=== PATIENT | male | born 1960 | race Caucasian/White ===

== ENCOUNTER 2022-08-08 01:45 | Day surgery (SDC) | payer OTHER, SELFPAY ==
[2022-07-28 11:46] VITALS: BMI 43.7
--- NOTE | 2022-08-07 10:24 | WPDANESEPPF ---
Anes - Initial Pre Proc Eval Procedure: Operation Date: 08/08/22 14:30 Proposed Procedures p Colonoscopy - Brandan Hoang MD Date/Time: 08/07/22 10:24 Surgeon: Brandan Hoang MD Pre Op Diagnosis: diarrhea Patient Data Age: 62 Gender: M Height: 1.68 m Weight: 122.8 kg Allergies Allergy/AdvReac Type Severity Reaction Status Date / Time No Known Allergies Allergy Mild Verified 07/28/22 11:46 Home Medications Medication Instructions Recorded Confirmed Type atorvastatin 20 mg tablet 20 mg PO DAILY 07/13/22 07/28/22 History lisinopril 5 mg tablet 5 mg PO DAILY 07/13/22 07/28/22 History metformin 500 mg tablet 500 mg PO DAILY 07/13/22 07/28/22 History metoprolol tartrate 25 mg tablet 25 mg PO BID 07/13/22 07/28/22 History nmjfuwoalck-qzpvwoilsfo-uhhsto 500 1 tablet PO DAILY 07/28/22 07/28/22 History mg-400 mg-80 mg tablet Results Review: All pre-operative results and documents have been reviewed as part of the pre-operative evaluation. [facility] Past Medical History Medical History (Updated 08/07/22 @ 10:25 by Matt Mckeon MD) Colon cancer screening Diabetes type 2, controlled Hyperlipidemia Hypertension Morbid obesity with BMI of 40.0-44.9, adult Obesity Social History Social History Smoking status: Never smoker Substance use type: does not use Living arrangements: with family Spiritual care concerns: No Anes - Eval Final PreProcedure Day of Procedure 08/07/22 10:24 Patient weight: morbidly obese Heart: regular rate and rhythm Lungs: clear to auscultation and normal air movement Airway: Mallampati scale class II Neurological: alert and oriented Last oral intake: >/= 8 hours ASA classification: III Emergent: no Anesthetic plan: proceed Anesthesia type and monitoring: general GIVS Results Review: All pre-operative results and documents have been reviewed as part of the pre-operative evaluation. Informed Consent: The patient's anesthetic plan and its attendant risks and benefits were discussed with the patient/family/POA. Questions were solicited and answers provided to the satisfaction of the patient/family/POA.
[2022-08-08 13:12] VITALS: BP 135/75; PULSE 70; RESP 18; TEMP 36.1; O2SAT 100
--- NOTE | 2022-08-08 13:20 | WPDANESEPPF ---
Anes - Initial Pre Proc Eval Procedure: Operation Date: 08/08/22 14:30 Proposed Procedures p Colonoscopy - Brandan Hoang MD Date/Time: 08/08/22 13:20 Surgeon: Brandan Hoang MD Pre Op Diagnosis: diarrhea Patient Data Age: 62 Gender: M Height: 1.68 m Weight: 119 kg Last Vital Signs Temp 36.1 C L 08/08/22 13:12 Pulse 70 08/08/22 13:12 Resp 18 08/08/22 13:12 BP 135/75 08/08/22 13:12 Pulse Ox 100 08/08/22 13:12 O2 Del Method Room Air 08/08/22 13:12 Allergies Allergy/AdvReac Type Severity Reaction Status Date / Time No Known Allergies Allergy Mild Verified 08/08/22 13:10 Home Medications Medication Instructions Recorded Confirmed Type atorvastatin 20 mg tablet 20 mg PO DAILY 07/13/22 07/28/22 History lisinopril 5 mg tablet 5 mg PO DAILY 07/13/22 07/28/22 History metformin 500 mg tablet 500 mg PO DAILY 07/13/22 07/28/22 History metoprolol tartrate 25 mg tablet 25 mg PO BID 07/13/22 07/28/22 History zbasvyuogjr-jigpoxfddgt-foeycf 500 1 tablet PO DAILY 07/28/22 07/28/22 History mg-400 mg-80 mg tablet Patient hx anesthesia problems: none Family hx anesthesia problems: none Results Review: All pre-operative results and documents have been reviewed as part of the pre-operative evaluation. [facility] Past Medical History Medical History Colon cancer screening Diabetes type 2, controlled Hyperlipidemia Hypertension Morbid obesity with BMI of 40.0-44.9, adult Obesity ALLYN (obstructive sleep apnea) Social History Social History Smoking status: Never smoker Substance use type: does not use Living arrangements: with family Spiritual care concerns: No Anes - Eval Final PreProcedure Day of Procedure 08/08/22 13:20 Patient weight: morbidly obese Heart: regular rate and rhythm Lungs: clear to auscultation Airway: Mallampati scale class III and special considerations poor dentition Neurological: alert and oriented Last oral intake: >/= 8 hours ASA classification: III Emergent: no Anesthetic plan: proceed Anesthesia type and monitoring: general GIVS and standard monitoring Results Review: All pre-operative results and documents have been reviewed as part of the pre-operative evaluation. Informed Consent: The patient's anesthetic plan and its attendant risks and benefits were discussed with the patient/family/POA. Questions were solicited and answers provided to the satisfaction of the patient/family/POA.
[2022-08-08] MEDS: LACTATED RINGERS 1,000 ML 150 ML IV CONT (13:32)
[2022-08-08 13:34] LABS: Glucose Point of Care 146 mg/dl (65-105)
--- NOTE | 2022-08-08 13:56 | PM.HPGS ---
History of Present Illness History of Present Illness Consent: Risks, benefits, and alternatives have been discussed and questions answered. Patient agrees to proceed with procedure. Chief complaint: diarrhea Narrative: Dereck Alexander is a 62 year old male Referred for change in bowel habits. Lately if he has any sort of spicy food he will have diarrhea and cramping. He denies seeing blood in his stoo Review of Systems Review of Systems: All systems reviewed & are unremarkable except as noted in HPI and below PMFSH Past Medical History Medical History Colon cancer screening Diabetes type 2, controlled Hyperlipidemia Hypertension Morbid obesity with BMI of 40.0-44.9, adult Obesity ALLYN (obstructive sleep apnea) Social History Social History Smoking status: Never smoker Substance use type: does not use Living arrangements: with family Spiritual care concerns: No Meds Home Medications and Allergies Home Medications Medication Instructions Recorded Confirmed Type atorvastatin 20 mg tablet 20 mg PO DAILY 07/13/22 08/08/22 History lisinopril 5 mg tablet 5 mg PO DAILY 07/13/22 08/08/22 History metformin 500 mg tablet 500 mg PO DAILY 07/13/22 08/08/22 History metoprolol tartrate 25 mg tablet 25 mg PO BID 07/13/22 08/08/22 History pcizeckbjdj-ymffmxzyhnc-hhhndf 500 1 tablet PO DAILY 07/28/22 08/08/22 History mg-400 mg-80 mg tablet Allergies Allergy/AdvReac Type Severity Reaction Status Date / Time No Known Allergies Allergy Mild Verified 08/08/22 13:10 Vital Signs Vital Signs - 24 hr 08/08/22 13:12 Temperature 36.1 C L Pulse Rate 70 Respiratory Rate 18 Blood Pressure 135/75 Pulse Oximetry 100 Oxygen Delivery Room Air Exam Const: General: alert Orientation/consciousness: patient oriented x3 Resp: Auscultation: clear to auscultation bilaterally Cardio: Rhythm: regular rhythm GI: GI Palp: Yes Soft to palpation and No Tenderness to palpation present (GI) Neuro: General: patient oriented x3 Assessment and Plan Assessment and plan (1) Colon cancer screening: Code(s): Z12.11 - Encounter for screening for malignant neoplasm of colon Status: Acute (2) Change in bowel habits: Code(s): R19.4 - Change in bowel habit Status: Acute Assessment and Plan: Colonoscopy with possible biopsy or polypectomy or cautery or injection of substances.
[2022-08-08 14:29] VITALS: BP 110/59; PULSE 78; RESP 18; O2SAT 96
[2022-08-08 14:39] VITALS: BP 98/59; PULSE 74; RESP 18; O2SAT 97
[2022-08-08 14:49] VITALS: BP 102/57; PULSE 91; RESP 18; O2SAT 97
== END 2022-08-08 14:55 | disposition home or self-care (01) ==
PROVIDERS: PCP Family Medicine; Visit Provider Internal Medicine Gastroenterology
PROC: 0DJD8ZZ Inspection of Lower Intestinal Tract, Via Natural or Artificial Opening Endoscopic (ICD-10-PCS; CPT 45378; principal; 2022-08-08 14:30)
DX: Z12.11 Encounter for screening for malignant neoplasm of colon (principal); R19.7 Diarrhea, unspecified; K57.30 Diverticulosis of large intestine without perforation or abscess without bleeding; E11.9 Type 2 diabetes mellitus without complications; E78.5 Hyperlipidemia, unspecified; I10 Essential (primary) hypertension; G47.33 Obstructive sleep apnea (adult) (pediatric); E66.01 Morbid (severe) obesity due to excess calories; Z68.41 Body mass index [BMI] 40.0-44.9, adult; Z79.84 Long term (current) use of oral hypoglycemic drugs
CPT/HCPCS: 45378; 82948; J2001; J2704; J7120

== ENCOUNTER 2022-09-13 06:21 | Emergency (ER) | payer OTHER, SELFPAY ==
--- NOTE | ~2022-09-13 | CT_ITS ---
CT Abdomen and Pelvis with contrast. History: Abdominal pain. Spiral CT of the abdomen and pelvis was performed after the administration of intravenous contrast. 1 00 cc of Omnipaque 350 was administered intravenously without complication. Dose reduction technique was used on this scan by utilizing automated exposure control and iterative reconstruction technique. The dose-length product (DLP) was 1436.12 mGy-cm. Findings: Scans through the lung bases demonstrate mild atelectatic change. The liver, spleen, pancreas, gallbladder, adrenals and right kidney are within normal limits. Punctat e nonobstructing left lower pole renal stone noted. No evidence of aortic aneurysm. No lymphadenopat hy is seen. There is no evidence of bowel obstruction. There is no evidence to suggest acute appendicitis or dive rticulitis. Images through the pelvis were performed. Urinary bladder unremarkable. Prostate gland and seminal ve sicles are unremarkable. No ascites is seen. Impression: No acute abnormality. Punctate nonobstructing left renal stone. Reviewed, dictated and finalized at [facility]. ORATE COORDINATOR Impression: No acute abnormality. Punctate nonobstructing left renal stone.
[2022-09-13 06:26] VITALS: BP 145/64; PULSE 66; RESP 17; TEMP 36.3; O2SAT 98
[2022-09-13 06:33] VITALS: PULSE 65; RESP 12; O2SAT 97
[2022-09-13 07:01] LABS: Basophils Absolute Auto 0.1 K/mm3 (0.0-0.1); Eosinophils Absolute Auto 0.2 K/mm3 (0-0.3); Eosinophils Percent Auto 4.1 % (0-4.4); Hematocrit 40.9 % (42.0-52.0); Hemoglobin 14.1 g/dL (14.0-18.0); Immature Granulocyte Absolute 0.02 K/mm3 (0.00-0.031); Immature Granulocyte Percent A 0.3 % (0-0.5); Lymphocytes Absolute Auto 1.73 K/mm3 (0.9-3.2); Lymphocytes Percent Auto 29.9 % (18.3-44.2); Mean Corpuscular HGB Conc 34.5 g/dl (32-36); Mean Corpuscular Hemoglobin 31.3 pg (26-34); Mean Corpuscular Volume 90.9 fl (80-100); Mean Platelet Volume 10.5 fl (7.4-10.4); Monocytes Absolute Auto 0.6 K/mm3 (0.1-0.6); Monocytes Percent Auto 9.7 % (2.6-8.5); Neutrophils Absolute Auto 3.2 K/mm3 (1.3-6.7); Platelet Count Result 148 k/mm3 (150-375); Red Cell Distribution Width 12.2 % (11.5-14.5); White Blood Count 5.8 K/mm3 (4.5-10.0)
[2022-09-13 07:02] LABS: Appearance Urine Clear (Clear); Bilirubin Urine Negative (Negative); Blood Urine Negative (Negative); Color Urine Yellow (Yellow); Glucose Urine UA Negative (Negative); Ketones Urine Negative (Negative); Leukocyte Esterase Ur Negative LEU/UL (Negative); Nitrate Urine Negative (Negative); Protein Urine Negative (Negative); Specific Grav Ur 1.025 (1.001-1.035); Urobilinogen Urine 0.2 mg/dL (<2.0); pH Urine 5.5 (5.0-9.0)
[2022-09-13 07:15] LABS: Alanine Aminotransferase 59 U/L (6-50); Albumin Level 4.3 g/dL (3.5-5.1); Alkaline Phosphatase 47 U/L (38-126); Anion Gap 5 mmol/L (8-16); Aspartate Amino Transferase 43 U/L (17-59); Bilirubin,Total 0.6 mg/dL (0.2-1.3); Blood Urea Nitrogen 21 mg/dL (9-20); Calcium 8.4 mg/dL (8.4-10.2); Carbon Dioxide 28 mmol/L (22-30); Chloride 96 mmol/L (98-107); Estimated CRCL calculation 93 ml/min; Estimated Glomerular Filt Rate > 60; Glucose 142 mg/dL (65-110); Lipase 105 U/L (23-300); Potassium 3.4 mmol/L (3.4-5.0); Sodium 129 mmol/L (137-145)
[2022-09-13 07:18] LABS: Mucus Urine Rare /lpf; RBC Urine 0-2 /hpf (0-2); WBC Urine 0-3 /hpf
[2022-09-13 07:19] LABS: Add Urine Microscopic? YES
[2022-09-13] MEDS: SODIUM CHLORIDE 0.9% IV 1,000 ML 999 ML IV CONT (07:39)
--- NOTE | 2022-09-13 07:42 | ED.GENADULT ---
HPI - General Adult General Chief complaint: Abdominal Pain Stated complaint: diarrhea since Monday last week Time Seen by Provider: 09/13/22 06:57 History of Present Illness HPI narrative: 62-year-old male presenting the emergency department for evaluation of left lower quadrant pain that started yesterday. Patient describes left lower quadrant pain as a 5 out of 10 with associated diarrhea. Patient states symptoms have been going on for the last week. Does have a past medical history of hypertension, high cholesterol, type 2 diabetes. Patient denies any prior history of diverticulitis and denies any prior history of abdominal surgeries Related Data Home Medications Medication Instructions Recorded Confirmed atorvastatin 20 mg tablet 20 mg PO DAILY 07/13/22 08/08/22 lisinopril 5 mg tablet 5 mg PO DAILY 07/13/22 08/08/22 metformin 500 mg tablet 500 mg PO DAILY 07/13/22 08/08/22 metoprolol tartrate 25 mg tablet 25 mg PO BID 07/13/22 08/08/22 guxtosxjruj-rqycyhwhqym-wqfait 500 1 tablet PO DAILY 07/28/22 08/08/22 mg-400 mg-80 mg tablet Allergies Allergy/AdvReac Type Severity Reaction Status Date / Time No Known Allergies Allergy Mild Verified 08/08/22 13:10 Review of Systems Review of Systems: CONSTITUTIONAL: Denies fever, chills, or sweats. EYES: Denies visual changes, redness, or discharge. ENT: Denies rhinorrhea, congestion, sore throat, or otalgia. CARDIOVASCULAR: Denies chest pain, palpitations, or edema. RESPIRATORY: Denies cough or dyspnea. GASTROINTESTINAL: See HPI GENITOURINARY: Denies dysuria or hematuria. SKIN: Denies rash or itching. MUSCULOSKELETAL: Denies back pain, joint pain, or myalgia. NEUROLOGIC: Denies headache, numbness, or weakness. [facility] Past Medical History Medical History Colon cancer screening Diabetes type 2, controlled Hyperlipidemia Hypertension Morbid obesity with BMI of 40.0-44.9, adult Obesity ALLYN (obstructive sleep apnea) Social History Social History Smoking status: Never smoker Substance use type: does not use Living arrangements: with family Spiritual care concerns: No Exam Narrative: APPEARANCE: Well appearing, no pain, no distress, well-nourished. HEAD: normocephalic, atraumatic. EYES: PERRLA/EOMI, conjunctivae clear. NOSE: Normal no drainage NECK: Supple. No adenopathy, no masses. RESPIRATORY: Airway patent, respirations nonlabored. Clear to auscultation bilaterally, no rales, rhonchi, wheezing. CARDIOVASCULAR: Regular rate and rhythm without murmurs rubs or gallops. ABDOMINAL: Left upper and left lower quadrant tenderness to palpation. MUSCULOSKELETAL: Moves all extremities. Strength/ROM intact, No edema, No calf tenderness. NEURO: Alert. Cranial nerves II through XII intact. Grossly intact SKIN: Warm, dry. Normal Color Course Course Emergency Course: Patient is afebrile with no leukocytosis. Patient's UA showed no evidence of urinary tract infection. Patient is still on antibiotics by urgent care for urinary tract infection. CT scan showed no evidence of diverticulitis and no acute abnormality. Patient was updated on results of his work-up. Patient was courage of close follow-up with his primary care physician along with potential follow-up with urology for his previous urinary tract infection. Vital Signs Vital signs: Vital Signs Temperature 97.4 F L 09/13/22 06:26 Pulse Rate 66 09/13/22 06:26 Respiratory Rate 17 09/13/22 06:26 Blood Pressure 145/64 H 09/13/22 06:26 Pulse Oximetry 98 09/13/22 06:26 Oxygen Delivery Room Air 09/13/22 06:26 Temperature 98.8 F 09/13/22 10:24 Pulse Rate 75 09/13/22 10:24 Respiratory Rate 15 09/13/22 10:24 Blood Pressure 105/62 09/13/22 10:24 Pulse Oximetry 98 09/13/22 10:24 Oxygen Delivery Room Air 09/13/22 06:26 Medical Decision Making Vital Signs Vital Si
[2022-09-13 10:24] VITALS: BP 105/62; PULSE 75; RESP 15; TEMP 37.1; O2SAT 98
== END 2022-09-13 10:27 | disposition home or self-care (01) ==
PROVIDERS: Emergency Medicine; Emergency Provider Emergency Medicine; PCP Family Medicine
DX: N39.0 Urinary tract infection, site not specified (principal); R10.9 Unspecified abdominal pain; R19.7 Diarrhea, unspecified; E11.9 Type 2 diabetes mellitus without complications; I10 Essential (primary) hypertension; E78.5 Hyperlipidemia, unspecified; Z79.84 Long term (current) use of oral hypoglycemic drugs
CPT/HCPCS: 36415; 74177; 80053; 81001; 83690; 85025; 96360; 99284; J7030; Q9967

== ENCOUNTER 2024-05-08 15:27 | Emergency (ER) | payer BC, SELFPAY ==
--- NOTE | ~2024-05-08 | XR_ITS ---
EXAMINATION: XR chest 2V DATE: 05/08/2024 16:25 INDICATION: Dyspnea TECHNIQUE: PA and lateral views of the chest were obtained. COMPARISON: None FINDINGS: The lungs are clear with no focal airspace opacities, pulmonary edema, pleural effusion or pneumothor ax. The cardiomediastinal silhouette is normal. Moderate thoracic spondylosis. IMPRESSION: 1. No acute cardiopulmonary disease. Reviewed, dictated and finalized at location B.
[2024-05-08 15:29] VITALS: BP 124/59; PULSE 107; RESP 20; TEMP 36.7; O2SAT 97
--- NOTE | 2024-05-08 15:29 | ECG_ITS ---
Test Date: 2024-05-08 15:49:37 Measurements Intervals [place] Rate: 101 P: 28 ME: 144 QRS: 21 QRSD: 97 T: 4 QT: 352 QTc: 458 Interpretive Statements SINUS TACHYCARDIA CONSIDER INFERIOR INFARCT, AGE INDETERMINATE ABNORMAL ECG No previous ECG available for comparison Electronically Signed On 05-08-2024 15:52:57 CDT by Horace Amos D.O.
--- NOTE | 2024-05-08 15:40 | ED.GENADULT ---
HPI - General Adult General Chief complaint: Shortness of Breath/Dyspnea Stated complaint: dyspnea Time Seen by Provider: 05/08/24 15:39 History of Present Illness HPI narrative: Patient is a 64-year-old male who presents ER with shortness of breath. Worsening over the last 5 days. Feels like he has concrete/congestion within his lungs. He cannot expel it. No fevers or chills or sweats. No nausea or vomiting. Mild dyspnea. He gets some tightness related to his cough. Related Data Home Medications Medication Instructions Recorded Confirmed atorvastatin 20 mg tablet 20 mg PO DAILY 07/13/22 08/08/22 lisinopril 5 mg tablet 5 mg PO DAILY 07/13/22 08/08/22 metformin 500 mg tablet 500 mg PO DAILY 07/13/22 08/08/22 metoprolol tartrate 25 mg tablet 25 mg PO BID 07/13/22 08/08/22 geenzwiuqhn-ufahyxoqlsz-rjgtjg 500 1 tablet PO DAILY 07/28/22 08/08/22 mg-400 mg-80 mg tablet Allergies Allergy/AdvReac Type Severity Reaction Status Date / Time No Known Allergies Allergy Mild Verified 08/08/22 13:10 Review of Systems Review of Systems: All systems reviewed & are unremarkable except as noted in HPI and below Constitutional: Constitutional: Reports no additional constitutional complaints ENT: Reports system reviewed and no additional complaints, except as documented Cardiovascular: Cardiovascular: Reports no additional cardiovascular complaints Respiratory: Respiratory: Reports no additional respiratory complaints Gastrointestinal: Gastrointestinal: Reports no additional gastrointestinal complaints PMFSH Past Medical History Medical History Colon cancer screening Diabetes type 2, controlled Hyperlipidemia Hypertension Morbid obesity with BMI of 40.0-44.9, adult Obesity ALLYN (obstructive sleep apnea) Social History Social History Smoking status: Never smoker Substance use type: does not use Living arrangements: with family Spiritual care concerns: No Exam Narrative: GENERAL: Well-appearing, well-nourished, and in no acute distress. HEAD: Normocephalic, atraumatic. ENT: Mucous membranes moist. CHEST: Clear to auscultation. No respiratory distress. HEART: Regular rate and rhythm. Normal peripheral pulses. ABDOMEN: Soft, nontender, nondistended. EXTREMITIES: Normal range of motion. No edema. SKIN: Warm, dry, no rash. NEURO: Alert and oriented x3. PSYCH: Normal mood and affect. Course Course Emergency Course: Chest tightness resolved with nebulizer treatment. Discharge home with low-dose prednisone and albuterol to help with his symptoms. Likely mild bronchitis. Vital Signs Vital signs: Vital Signs Temperature 98.0 F 05/08/24 15:29 Pulse Rate 107 H 05/08/24 15:29 Respiratory Rate 20 05/08/24 15:29 Blood Pressure 124/59 L 05/08/24 15:29 Pulse Oximetry 97 05/08/24 15:29 Oxygen Delivery Room Air 05/08/24 15:29 Temperature 98.0 F 05/08/24 15:29 Pulse Rate 100 05/08/24 17:18 Respiratory Rate 20 05/08/24 17:18 Blood Pressure 120/61 05/08/24 17:18 Pulse Oximetry 95 05/08/24 17:18 Oxygen Delivery Room Air 05/08/24 17:18 Medical Decision Making Vital Signs Vital Signs: Vital Signs Temperature 98.0 F 05/08/24 15:29 Pulse Rate 107 H 05/08/24 15:29 Respiratory Rate 20 05/08/24 15:29 Blood Pressure 124/59 L 05/08/24 15:29 Pulse Oximetry 97 05/08/24 15:29 Oxygen Delivery Room Air 05/08/24 15:29 Temperature 98.0 F 05/08/24 15:29 Pulse Rate 100 05/08/24 17:18 Respiratory Rate 05/08/24 17:18 Blood Pressure 120/61 05/08/24 17:18 Pulse Oximetry 95 05/08/24 17:18 Oxygen Delivery Room Air 05/08/24 17:18 Lab Data 05/08/24 16:03 05/08/24 16:03 Labs: Lab Results 05/08/24 05/08/24 Range/Units 16:03 16:05 WBC 9.8 (4.5-10.0) K/mm3 RBC 3.80 L (4.6-6.20)
[2024-05-08 16:10] LABS: Basophils Absolute Auto 0.1 K/mm3 (0.0-0.1); Basophils Percent Auto 0.5 % (0.2-1.2); Eosinophils Absolute Auto 0.2 K/mm3 (0-0.3); Eosinophils Percent Auto 2.5 % (0-4.4); Hematocrit 35.6 % (42.0-52.0); Immature Granulocyte Absolute 0.09 K/mm3 (0.00-0.031); Immature Granulocyte Percent A 0.9 % (0-0.5); Lymphocytes Absolute Auto 1.42 K/mm3 (0.9-3.2); Lymphocytes Percent Auto 14.5 % (18.3-44.2); Mean Corpuscular HGB Conc 33.7 g/dl (32-36); Mean Corpuscular Hemoglobin 31.6 pg (26-34); Mean Corpuscular Volume 93.7 fl (80-100); Mean Platelet Volume 10.4 fl (7.4-10.4); Monocytes Absolute Auto 0.9 K/mm3 (0.1-0.6); Monocytes Percent Auto 9.6 % (2.6-8.5); Platelet Count Result 155 k/mm3 (150-375); Red Cell Distribution Width 12.7 % (11.5-14.5); White Blood Count 9.8 K/mm3 (4.5-10.0)
--- NOTE | 2024-05-08 16:19 | PC.NURSE ---
Pt taken to CT at this time
[2024-05-08 16:20] LABS: Alanine Aminotransferase 37 U/L (6-50); Albumin Level 4.2 g/dL (3.5-5.1); Alkaline Phosphatase 49 U/L (38-126); Anion Gap 12 mmol/L (4-12); Aspartate Amino Transferase 32 U/L (17-59); Bilirubin,Total 0.7 mg/dL (0.2-1.3); Blood Urea Nitrogen 23 mg/dL (9-20); Carbon Dioxide 24 mmol/L (22-30); Chloride 95 mmol/L (98-107); Estimated CRCL calculation 85 ml/min; Estimated Glomerular Filt Rate > 60; Glucose 195 mg/dL (65-110); Potassium 3.3 mmol/L (3.4-5.0); Sodium 131 mmol/L (137-145)
--- NOTE | 2024-05-08 16:25 | PC.NURSE ---
Pt returned to room 1 at this time
[2024-05-08 16:28] LABS: NT Pro B Type Natriuretic Pept 47 pg/mL (19.9-100)
[2024-05-08 16:46] LABS: Influenza A QL RT-PCR Negative (Negative); Influenza B QL RT-PCR Negative (Negative); RSV RNA, RT-PCR Negative (Negative); SARS-CoV-2 RNA PCR Negative (Negative)
[2024-05-08] MEDS: SODIUM CHLORIDE 0.9% IV 1,000 ML 999 ML IV CONT (16:49)
[2024-05-08 16:55] VITALS: PULSE 96; RESP 22
[2024-05-08] MEDS: IPRATROPIUM 0.5 MG/ALBUTEROL SULFATE 2.5 MG AMPUL.NEB 3 ML INHALATION (16:55)
[2024-05-08 17:04] VITALS: PULSE 99; RESP 20
[2024-05-08 17:18] VITALS: BP 120/61; PULSE 100; RESP 20; O2SAT 94; O2SAT 95
== END 2024-05-08 18:53 | disposition home or self-care (01) ==
PROVIDERS: Emergency Provider Emergency Medicine; PCP Family Medicine
DX: J40 Bronchitis, not specified as acute or chronic (principal); E11.9 Type 2 diabetes mellitus without complications; E78.5 Hyperlipidemia, unspecified; I10 Essential (primary) hypertension; E66.9 Obesity, unspecified; Z68.36 Body mass index [BMI] 36.0-36.9, adult; G47.33 Obstructive sleep apnea (adult) (pediatric); Z20.822 Contact with and (suspected) exposure to COVID-19
CPT/HCPCS: 36415; 71046; 80053; 83880; 85025; 87637; 93005; 94640; 96360; 99283; J7030